=== PATIENT | female | born 1960 | race Caucasian/White ===

== ENCOUNTER 2018-02-19 09:40 | Emergency (ER) | payer OTHER ==
[2018-02-19] MEDS ORDERED: IBUPROFEN 600 MG TAB PO ONE (10:11)
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
[2018-02-19 11:21] VITALS: BP 124/89
== END 2018-02-19 11:14 | disposition home or self-care (01) ==
DX: S16.1XXA Strain of muscle, fascia and tendon at neck level, initial encounter (principal); W22.8XXA Striking against or struck by other objects, initial encounter; Y99.0 Civilian activity done for income or pay; Y92.59 Other trade areas as the place of occurrence of the external cause